=== PATIENT | female | born 1980 | race Two or more races ===

== ENCOUNTER 2018-01-06 12:41 | Inpatient (IN) | payer SELFPAY ==
[2018-01-06] MEDS: IV RINGERS,LACTATED 1000ML 1,000 ML IV ×4 (13:33→21:33)
[2018-01-06 13:44] LABS: BILIRUBIN,URINE NEGATIVE (NEG); CLARITY,URINE CLEAR; COLOR,URINE YELLOW; GLUCOSE,URINE NEGATIVE (NEG); NITRITE,URINE NEGATIVE (NEG); PROTEIN,URINE NEGATIVE (NEG-TRACE); UROBILINOGEN,URINE 0.2 mg/dL (0.2 mg/dL)
[2018-01-06] MEDS ORDERED: ONDANSETRON PF 4 MG/2 ML VIAL. IV (13:45)
[2018-01-06] MEDS ORDERED: 0.9 % SODIUM CHLORIDE 10 ML DISP.SYRIN. IV ×3 (13:45→17:15)
[2018-01-06] MEDS ORDERED: LIDOCAINE 1% PF 30 ML VIAL. INJ (13:45)
[2018-01-06] MEDS ORDERED: OXYTOCIN 30 UNIT/500 ML PREMIX 500 ML IV ×3 (13:45→17:15)
[2018-01-06] MEDS ORDERED: IBUPROFEN 800 MG TABLET. PO (13:45)
[2018-01-06] MEDS ORDERED: fentaNYL PF VIAL 100 MCG/2 ML VIAL IV (13:45)
[2018-01-06] MEDS ORDERED: TERBUTALINE 1 MG/ML VIAL. SQ (13:45)
[2018-01-06 13:57] LABS: BACTERIA,URINE MODERATE /HPF (0-FEW); RBC,URINE 0 /HPF (0-2); SQUAMOUS EPITHELIAL CELL,UR MANY /LPF
[2018-01-06] MEDS: AMPICILLIN SODIUM 2 GM in IV NORMAL SALINE 100ML 100 ML IV (14:10)
[2018-01-06 14:19] LABS: ADD MAN DIFF? NO
[2018-01-06 14:37] LABS: BASO % 0 % (0-3); EOS % 0 % (0-3); HEMATOCRIT 32.5 % (36.0-47.0); HEMOGLOBIN 10.6 g/dL (12.0-15.5); LYMPH # 2.2 x10^3/uL (1.0-4.8); LYMPH % 20 % (24-48); MEAN CORPUSCULAR HEMOGLOBIN 27 pg (25-35); MEAN CORPUSCULAR HGB CONC 33 g/dL (31-37); MEAN CORPUSCULAR VOLUME 83 fL (79-100); MONO # 0.7 x10^3/uL (0.0-1.1); MONO % 7 % (0-9); NEUT # 7.9 x10^3uL (1.8-7.7); NEUT % 73 % (31-73); PLATELET COUNT 197 x10^3/uL (140-400); RED CELL DISTRIBUTION WIDTH 15.2 % (11.5-14.5); WHITE BLOOD COUNT 10.9 x10^3/uL (4.0-11.0)
[2018-01-06] MEDS ORDERED: METHYLERGONOVINE MALEATE 0.2 MG/ML VIAL. IM ×2 (16:26→17:00)
[2018-01-06] MEDS: OXYTOCIN 30 UNIT/500 ML PREMIX 500 ML IV (16:30)
[2018-01-06] MEDS ORDERED: HYDROCORTISONE 1% TOPICAL OINTMENT 30GM TUBE. TP ×2 (17:15)
[2018-01-06] MEDS ORDERED: PHENYLEPH/MINERAL OIL/PETROLAT RECTAL OINTMENT 28GM TUBE. RC ×2 (17:15)
[2018-01-06] MEDS ORDERED: BENZOCAINE 20% TOPICAL AEROSOL SPRAY 57GM CAN. TP ×2 (17:15)
[2018-01-06] MEDS ORDERED: SIMETHICONE 80 MG TAB.CHEW PO ×2 (17:15)
[2018-01-06] MEDS ORDERED: MAG HYDROX/ALUMINUM HYD/SIMETH 30 ML ORAL.SUSP PO (17:15)
[2018-01-06] MEDS ORDERED: ACETAMINOPHEN 325 MG TABLET. PO ×2 (17:15)
[2018-01-06] MEDS ORDERED: MAGNESIUM HYDROXIDE 2,400 MG/30 ML ORAL.SUSP. PO ×2 (17:15)
[2018-01-06] MEDS ORDERED: diphenhydrAMINE HCL 25 MG CAPSULE PO ×2 (17:15)
[2018-01-06] MEDS ORDERED: oxyCODONE/APAP 5/325 1 TAB TABLET PO ×2 (17:15)
[2018-01-06] MEDS ORDERED: DOCUSATE SODIUM 100 MG CAPSULE. PO ×2 (17:15)
[2018-01-06] MEDS ORDERED: MMR per PROTOCOL. MC ×2 (17:15)
[2018-01-06] MEDS ORDERED: ZOLPIDEM 5 MG TABLET. PO ×2 (17:15)
[2018-01-06] MEDS ORDERED: IBUPROFEN 600 MG TABLET. PO (18:00)
[2018-01-06] MEDS: AMPICILLIN SODIUM 1 GM in IV NORMAL SALINE 50ML 50 ML IV ×2 (18:03→22:00)
[2018-01-06] MEDS: IBUPROFEN 600 MG TABLET. PO (20:41)
[2018-01-06] MEDS: MAG HYDROX/ALUMINUM HYD/SIMETH 30 ML ORAL.SUSP PO (20:47)
[2018-01-07 05:47] LABS: HEMATOCRIT 30.7 % (36.0-47.0)
[2018-01-07] MEDS: IBUPROFEN 600 MG TABLET. PO ×4 (06:00→18:00)
[2018-01-07] MEDS: FERROUS SULFATE 325 MG TABLET. PO (07:18)
[2018-01-07] MEDS ORDERED: FERROUS SULFATE 325 MG TABLET. PO (08:00)
[2018-01-08] MEDS: IBUPROFEN 600 MG TABLET. PO
[2018-01-08] MEDS: DIPHTH,PERTUSS(ACELL),TET TOX 0.5 ML DISP.SYRIN. VAX IM (09:53)
== END 2018-01-08 18:37 | disposition home or self-care (01) | DRG 775 ==
LOC: 3 SO LND 12:41 → 3 NORTH 21:10
PROC: 10E0XZZ Delivery of Products of Conception, External Approach (ICD-10-PCS; principal; 2018-01-06)
PROC: 10907ZC Drainage of Amniotic Fluid, Therapeutic from Products of Conception, Via Natural or Artificial Opening (ICD-10-PCS; 2018-01-06)
DX: O99.824 Streptococcus B carrier state complicating childbirth (principal); O69.81X0 Labor and delivery complicated by cord around neck, without compression, not applicable or unspecified; Z37.0 Single live birth; Z88.2 Allergy status to sulfonamides; Z3A.38 38 weeks gestation of pregnancy
CPT/HCPCS: 36415; 81001; 85014; 85025; 86850; 86900; 86901; 87086; 87186; 90715; G0378; J0290; J2210; J2590; J7120